=== PATIENT | female | born 1980 | race Hispanic/Latino ===

== ENCOUNTER 2017-10-06 06:06 | Inpatient (IN) | payer OTHER ==
[2017-10-06] MEDS ORDERED: LACTATED RINGERS 1000ML 1,000 ML IV PRN (06:15)
[2017-10-06] MEDS ORDERED: OXYTOCIN-LR 20 UNITS/1000 ML 1,000 ML IV SCH (06:15)
[2017-10-06] MEDS ORDERED: OXYTOCIN 10 USP UNITS/ML 20 UNIT in LACTATED RINGERS 1000ML 1,000 ML IV SCH (06:30)
[2017-10-06 06:52] LABS: APPEARANCE,URINE CLEAR (CLEAR); BILIRUBIN,URINE NEGATIVE (NEGATIVE); COLOR,URINE YELLOW (YELLOW); GLUCOSE, URINE (UA) NEGATIVE (NEGATIVE); KETONES,URINE NEGATIVE (NEGATIVE); LEUKOCYTE ESTERASE ,URINE TRACE (NEGATIVE); NITRATE,URINE NEGATIVE (NEGATIVE); OCCULT BLOOD,URINE SMALL (NEGATIVE); PROTEIN,URINE NEGATIVE (NEGATIVE); UROBILINOGEN,URINE 0.2 mg/dL (0.2-1.0)
[2017-10-06 06:54] LABS: HEMATOCRIT 35.7 % (36-48); MEAN CORPUSCULAR HEMOGLOBIN 26.7 pg (27.0-33.0); MEAN CORPUSCULAR HGB CONC 33.8 g/dL (32.0-36.0); MEAN CORPUSCULAR VOLUME 79.2 fL (79-99); NUCLEATED RED BLOOD CELLS 0.1 % (0.0-0.19); PLATELET COUNT (AUTO) 194 K/uL (130-400); RED BLOOD CELL COUNT(AUTO) 4.51 MIL/uL (4.00-5.50); RED CELL DISTRIBUTION WIDTH 16.4 % (11.0-15.5); WHITE BLOOD COUNT (AUTO) 6.2 K/uL (4.8-10.8)
[2017-10-06 07:04] LABS: RBC,URINE 0-1 /HPF (0-1)
[2017-10-06 07:05] LABS: BACTERIA,URINE Moderate /HPF (None Seen); SQUAMOUS EPITHELIAL CELL,UR Few /HPF (0-2)
[2017-10-06] MEDS ORDERED: LACTATED RINGERS 1000ML 1,000 ML IV ONE (07:18)
[2017-10-06] MEDS ORDERED: OXYTOCIN 10 USP UNITS/ML ONE ×4 (07:18→13:30)
[2017-10-06] MEDS ORDERED: EPHEDRINE SULFATE 50 MG/ML AMPULE IVP PRN (08:00)
[2017-10-06] MEDS ORDERED: LACTATED RINGERS 500 ML 500 ML IV PRN (08:00)
[2017-10-06] MEDS ORDERED: NALOXONE HCL 0.4 MG/1 ML ML IV PRN (08:00)
[2017-10-06] MEDS ORDERED: FENTANYL CITRATE PF 50 MCG/1 ML 2ML VIAL ONE (11:33)
[2017-10-06] MEDS ORDERED: MIDAZOLAM HCL 1 MG/ML 2ML VIAL ONE (11:33)
[2017-10-06] MEDS ORDERED: CEFAZOLIN SODIUM 1 GM VIAL ONE (11:54)
[2017-10-06] MEDS ORDERED: LIDOCAINE HCL-MPF 2% 10ML AMP IJ ONE (11:54)
[2017-10-06] MEDS ORDERED: ONDANSETRON HCL 4 MG/2 ML VIAL ONE (11:54)
[2017-10-06] MEDS ORDERED: DEXAMETHASONE SOD PHOSPHATE 10MG/ML 1ML VIAL ONE (11:54)
[2017-10-06] MEDS ORDERED: ACETAMINOPHEN-CODEINE 300/30MG TAB ONE (12:35)
[2017-10-06] MEDS ORDERED: BENZOCAINE/LANOLIN/ALOE VERA 60 ML AEROSOL TP PRN (12:45)
[2017-10-06] MEDS ORDERED: ACETAMINOPHEN 325 MG TAB PO PRN (12:45)
[2017-10-06] MEDS ORDERED: ACETAMINOPHEN-CODEINE 300/30MG TAB PO PRN (12:45)
[2017-10-06] MEDS ORDERED: WITCH HAZEL 1 PAD TP PRN (12:45)
[2017-10-06] MEDS ORDERED: LANOLIN 30GM OINTMENT TP PRN (12:45)
[2017-10-06] MEDS ORDERED: DIPH,PERTUSS(ACELL),TET VAC/PF 0.5 ML VIAL IM PRN (12:45)
[2017-10-06] MEDS ORDERED: MEASLES/MUMPS/RUBELLA VACCINE, LIVE 0.5 ML/VIAL SQ PRN (12:45)
[2017-10-06 13:40] VITALS: BP 133/76
[2017-10-06] MEDS ORDERED: PNV1TABL17 PO (14:33)
[2017-10-06 16:00] VITALS: BP 134/76
[2017-10-06] MEDS: IBUPROFEN 800 MG TAB PO PRN (18:09)
[2017-10-06 19:46] VITALS: BP 123/71
[2017-10-06] MEDS: DOCUSATE SODIUM 100 MG CAP PO SCH (20:57)
[2017-10-06 23:59] VITALS: BP 129/70
[2017-10-07] MEDS: IBUPROFEN 800 MG TAB PO PRN (03:31)
[2017-10-07 03:37] VITALS: BP 122/75
[2017-10-07 07:59] VITALS: BP 134/83
[2017-10-07 08:03] LABS: HEPATITIS Bs ANTIGEN SCREEN P Negative (Negative)
[2017-10-07] MEDS: DOCUSATE SODIUM 100 MG CAP PO SCH (08:52)
[2017-10-07 11:16] VITALS: BP 133/80
== END 2017-10-07 12:55 | disposition home or self-care (01) | DRG 767 ==
LOC: LDH 06:06 → WSH 14:10
PROVIDERS: ADMIT Obstetrics & Gynecology; ATTEND Obstetrics & Gynecology
PROC: 0UB70ZZ Excision of Bilateral Fallopian Tubes, Open Approach (ICD-10-PCS; 2017-10-06)
PROC: 10E0XZZ Delivery of Products of Conception, External Approach (ICD-10-PCS; 2017-10-06)
PROC: 10907ZC Drainage of Amniotic Fluid, Therapeutic from Products of Conception, Via Natural or Artificial Opening (ICD-10-PCS; 2017-10-06)
PROC: 3E0R3BZ Introduction of Anesthetic Agent into Spinal Canal, Percutaneous Approach (ICD-10-PCS; 2017-10-06)
PROC: 00HU33Z Insertion of Infusion Device into Spinal Canal, Percutaneous Approach (ICD-10-PCS; 2017-10-06)
PROC: 3E0234Z Introduction of Serum, Toxoid and Vaccine into Muscle, Percutaneous Approach (ICD-10-PCS; 2017-10-06)
PROC: 3E0134Z Introduction of Serum, Toxoid and Vaccine into Subcutaneous Tissue, Percutaneous Approach (ICD-10-PCS; 2017-10-06)
PROC: 0KQM0ZZ Repair Perineum Muscle, Open Approach (ICD-10-PCS; principal; 2017-10-06 11:25)
DX: O69.1XX0 Labor and delivery complicated by cord around neck, with compression, not applicable or unspecified (principal); O70.1 Second degree perineal laceration during delivery; Z3A.38 38 weeks gestation of pregnancy; Z37.0 Single live birth; Z30.2 Encounter for sterilization; Z23 Encounter for immunization
CPT/HCPCS: 36415; 81001; 85027; 86592; 86850; 86900; 86901; 87340; 88302; 90715; A4606; J0690; J1100; J2250; J2405; J2590; J3010; J3490; J7120